=== PATIENT | male | born 2000 | race Caucasian/White ===

== ENCOUNTER 2025-05-09 17:33 | Emergency (ER) | payer OTHER, SELFPAY ==
[2025-05-09 17:40] VITALS: BP 143/99
--- NOTE | 2025-05-09 20:09 | ED.MUSCINJ ---
HPI-Injury
General
Chief Complaint: Musculo-Skeletal Complaint
Source: patient
Exam Limitations: none
Time Seen by Provider: 05/09/25 19:33
Nursing documentation reviewed up to this point in time: agreed with
History of Present Illness-Injury
Initial Injury comments:
24-year-old male states 2 days ago he was going down an embankment and rolled his left ankle. He was able to walk on it initially but it has become more painful and swollen and more difficult and painful to weight-bear.
Past History
Past History
ED Past Medical History: None
ED Past Surgical History: None
Social History
Personal: Single
Living: with family
Employment: Not employed
Review of Systems
Review of Systems
Allergies reviewed?: Yes
All Other Systems: ROS reviewed and negative except as documented in HPI and ROS
Musculoskeletal Injury Exam
Musculoskeletal Injury Exam
Left foot and ankle:
Pain with Movement?: Moderate
Tender to palpation?: Moderate (Lateral aspect of the proximal foot and ankle)
Soft tissue swelling?: Moderate
External deformity and angulation?: None
Strain- Sprain- Tear (Connective tissue injury)?: Moderate
Joint instability?: No
Malalignment/deformity?: No
Range of motion: Limited
Distal skin color and temperature: normal-warm & good color
Capillary Refill: normal
Normal distal neurovascular exam?: Yes
Phy Exam
Physical Exam
Physical Exam:
PHYSICAL EXAMINATION:
General: no apparent distress, not acutely ill
Neuro: alert and oriented.
Psychiatric: well kept. interactive and cooperative
Musculoskeletal: Moves with ease
Skin: Warm, pink.
Injury Course
Orders/Labs/Results
Orders:
Orders
05/09/25 17:44
CR Ankle - Left Min 3 Views Urgent
Comment:
Reason For Exam: injury, swelling
CR Foot - Left Min 3 Views Urgent
Comment:
Reason For Exam: injury, swelling
05/09/25 19:50
Ortho Boot Left- Treatment ONCE
Short or tall?: Tall
05/09/25 19:51
Gonzales Wrap Left-Treatment ONCE
MDM/Problems Addressed
Differential Diagnosis Includes:
sprain, fracture
MDM/Problems Addressed:
24-year-old male states 2 days ago he was going down an embankment and rolled his left ankle. He was able to walk on it initially but it has become more painful and swollen and more difficult and painful to weight-bear.
Left foot x-ray initially read by this examiner, no bony abnormality, STS
Left ankle x-ray initially read by this examiner, no bony abnormality, STS
Pt has own crutches
gonzales wrap and ortho boot applied.
F/U with ortho as needed.
*Pulse Oximetry
SaO2: 100
Oxygen Mode of Delivery: Room air
Patient hypoxic: not evaluated
*Critical Care Note
Total Time (30-74mins, 75-104mins- exclusive of procedures): Not Applicable
ED Attending Note
-
Portions of this chart may have been created with voice recognition software.� Occasional wrong word or��sound alike� substitutions may have occurred due to the inherent limitations of voice recognition software.
Discharge Plan
Departure
Patient Disposition: Home (Routine Discharge)
Date of Disposition: 05/09/25
Time of Disposition: 20:05
Patient with high blood pressure during this ER visit?: No
Condition: Good
Discharge Problem:
Soft tissue injury of left foot, Soft tissue injury of left ankle
Instructions: Sprain (DC), Walking Boot, Using Cold for Pain
Referrals:
Mira Tanner I., DO [Active, Orthopedics] - As needed
Activity Restrictions/Additional Instructions:
As we discussed, wear the Gonzales wrap as needed for swelling, support and comfort.
Wear the Ortho boot at all times when up and around until you are more comfortable walking without it
Use your crutches with gradually increasing weight bearing as comfort permits
Ibuprofen 600 mg, with food, every 6 hours as needed for pain.
Cold compress to the area 20 minutes off and on is much as you can in the next 2 days and stay off of the foot with it elevated as much as you can
See the orthopedic doctor if your foot and ankle are not a lot better in 5-7 days or not 100% better in 3 to 4 weeks.
Interventions
Interventions:
*Risk Screen - Suicide Last Done: 05/09/25 17:40
*General Assessment Last Done: 05/09/25 17:40
*ED COVID-19 Vaccine History Last Done: 05/09/25 17:40
*Nursing Disposition Last Done: 05/09/25 20:33
ED-Musculoskeletal Assessment Last Done: 05/09/25 20:01
Discharge Date and Time
Discharge Date/Time: 05/09/25 20:35
Print Language: PARAGUAYAN
== END 2025-05-09 20:35 | disposition home or self-care (01) ==
LOC: EMR 17:33
PROVIDERS: EMERGENCY PHYSICIAN Emergency Medicine; FAMILY PHYSICIAN Family Medicine
DX: S99.912A Unspecified injury of left ankle, initial encounter (principal); S99.922A Unspecified injury of left foot, initial encounter; X50.1XXA Overexertion from prolonged static or awkward postures, initial encounter; Y93.01 Activity, walking, marching and hiking
CPT/HCPCS: 99283; 73610; 73630